=== PATIENT | female | born 1945 | race Caucasian/White ===

== ENCOUNTER → 2017-03-02 | Outpatient (CLI) | payer MEDICARE ==
--- NOTE | 2017-03-02 15:37 | US ---
EXAMINATION TYPE: US thyroid st tissue head/neck DATE OF EXAM: 03/02/2017 3:16 PM COMPARISON: NONE CLINICAL HISTORY: 71-year-old female E04.9 THYROID GOITER. Patient states she is on thyroid meds for 2 years. TECHNIQUE: Multiple sonographic images of the thyroid gland are obtained. FINDINGS: Right Lobe: 3.9 x 1.2 x 1.2 cm Left Lobe: 2.6 x 0.8 x 0.6 cm Isthmus Thickness: 0.2 cm Slight diffuse glandular heterogeneity. No discrete nodule on either side. Bilateral neck scanned, no evidence of lymphadenopathy. IMPRESSION: Small and slightly heterogeneous thyroid gland suggestive of chronic hypothyroidism. No discrete nodu le.
== END | disposition home or self-care (01) ==
LOC: RADUSWWP 14:55
PROVIDERS: ATTEND Family Medicine
DX: E04.9 Nontoxic goiter, unspecified (principal)
CPT/HCPCS: 76536

== ENCOUNTER 2017-05-11 12:10 | Day surgery (SDC) | payer MEDICARE ==
[2017-05-09 14:43] VITALS: BMI 30.4
[~2017-05-11 12:10] MED LIST: DEXAMETHASONE SOD PHOSPHATE 10 MG/ML 1 ML VIAL IV ONE; HEPARIN SODIUM,PORCINE 5,000 UNIT/ML 1 ML VIAL SQ ONE; LACTATED RINGERS 1,000 ML IV SCH; MIDAZOLAM 2 MG/2 ML VIAL IV PRN; ONDANSETRON 4 MG/2 ML VIAL IVP ONE; ceFAZolin 2 GM in SODIUM CHLORIDE 0.9% 100 ML IVPB ONE
[2017-05-11] MEDS ORDERED: LACTATED RINGERS 1,000 ML IV ONE ×3 (12:49→17:30)
[2017-05-11] MEDS ORDERED: LIDOCAINE 1% 20 ML VIAL (10MG/ML) FOR IV START INTRADERMA ONE (12:50)
--- NOTE | 2017-05-11 13:49 | P.GSHP ---
History of Present Illness H&P Date: 05/11/17 Chief Complaint: Incarcerated umbilical hernia This is a 71-year-old female who a safer laparoscopic repair of incarcerated umbilical hernia. Patient's had pain and a mass in umbilicus for several months. - Constitutional Constitutional: Reports as per HPI Past Medical History Past Medical History: Thyroid Disorder Additional Past Medical History / Comment(s): UMBILICAL HERNIA History of Any Multi-Drug Resistant Organisms: None Reported Past Surgical History: Appendectomy Additional Past Surgical History / Comment(s): COLONOSCOPY. BILAT CATARACTS REMOVED Past Anesthesia/Blood Transfusion Reactions: No Reported Reaction Smoking Status: Never smoker - Past Family History Mother Family Medical History: Cancer Medications and Allergies Home Medications Medication Instructions Recorded Confirmed Type Thyroid,Pork [Nature-Throid] 97.5 mg PO DAILY 05/09/17 05/11/17 History Allergies Allergy/AdvReac Type Severity Reaction Status Date / Time No Known Allergies Allergy Verified 05/09/17 14:36 Surgical - Exam Vital Signs Temp Pulse Resp BP Pulse Ox 98.0 F 56 L 18 132/80 97 05/11/17 12:48 05/11/17 12:48 05/11/17 12:48 05/11/17 12:48 05/11/17 12:48 - General well developed, no distress - Eyes PERRL - ENT normal pinna - Neck no masses - Respiratory normal expansion - Cardiovascular Rhythm: regular - Abdomen Abdomen: soft Hernia: umbilical (3 cm incarcerated hernia) Assessment and Plan Plan: Incarcerated we'll hernia. We'll perform laparoscopic repair.
[2017-05-11] MEDS ORDERED: SUCCINYLCHOLINE CHLORIDE 100 MG/5 ML SYR IV ONE (14:41)
[2017-05-11] MEDS ORDERED: MIDAZOLAM 2 MG/2 ML VIAL ONE (14:41)
[2017-05-11] MEDS ORDERED: NEOSTIGMINE 1 MG/ML 10 ML VIAL ONE (14:41)
[2017-05-11] MEDS ORDERED: PROPOFOL 10 MG/ML 20 ML VIAL IV ONE (14:41)
[2017-05-11] MEDS ORDERED: ROCURONIUM BROMIDE 10 MG/ML 10 ML VIAL IV ONE (14:41)
[2017-05-11] MEDS ORDERED: fentaNYL (PF) 50 MCG/ML 2 ML AMP ONE (14:41)
[2017-05-11] MEDS ORDERED: GLYCOPYRROLATE 0.2 MG/ML 2 ML VIAL ONE (14:41)
[2017-05-11] MEDS ORDERED: BUPIVACAIN-EPI 0.5%-1:200,000 30 ML VIAL SQ ONE (15:03)
--- NOTE | 2017-05-11 15:26 | P.OP ---
Date of Procedure: 05/11/17 Preoperative Diagnosis: Umbilical hernia Postoperative Diagnosis: Umbilical incarcerated hernia Procedure(s) Performed: Laparoscopic umbilical hernia repair Implants: Anesthesia: MIRNA Surgeon: Ramón Andre Estimated Blood Loss (ml): 5 Pathology: none sent Condition: stable Disposition: PACU Indications for Procedure: Operative Findings: Description of Procedure: The patient's placed on the operative table in the supine position. She received general anesthesia. Her abdomen was prepped and draped usual sterile fashion. The abdomen was entered with an optical 5 mm trocar in the left upper quadrant. After adequate insufflation the laparoscope was placed back into the abdominal cavity and then the 5 mm trochars placed left lower quadrant. And then a 12 mm trochars placed the left lateral position. The patient's placed in the left side up position. The umbilical hernia was visualized. The incarcerated. Fat was retracted back within the pleural cavity. The fascial defect was closed using. 0 Ethibond suture and a Neri Segura suture passer. Once the hernia was repaired. A ventral light ST mesh was placed. Cavity and secured with the spiral tacker over top of the hernia. At this point the trochars withdrawn. The skin was closed interrupted 3-0 Monocryl suture. Dermabond was applied. Patient top she will well and was sent to recovery in stable condition.
[2017-05-11 15:34] VITALS: TEMP 97.4
[2017-05-11] MEDS: HYDROmorphone 1 MG/ML 1 ML SYRINGE IVP PRN ×2 (15:50→15:55)
[2017-05-11 16:23] VITALS: RESP 16
[2017-05-11 18:51] VITALS: BP 110/60; PULSE 62
== END 2017-05-11 19:09 | disposition home or self-care (01) ==
LOC: OR 12:10
PROVIDERS: ATTEND Surgery
DX: K42.0 Umbilical hernia with obstruction, without gangrene (principal); E07.9 Disorder of thyroid, unspecified; Z79.899 Other long term (current) drug therapy
CPT/HCPCS: 49653; C1781; J2250; J1644; J1100; J2710; J0690; J2405; J3010; J1170; J0330; J2704

== ENCOUNTER → 2017-05-24 | Outpatient (CLI) | payer MEDICARE ==
--- NOTE | 2017-05-24 17:01 | US ---
EXAMINATION TYPE: US gallbladder DATE OF EXAM: 05/24/2017 COMPARISON: US CLINICAL HISTORY: 71-year-old female K80.00 GALLSTONES. Pt states RUQ pain. TECHNIQUE: Multiple sonographic images of the right upper quadrant are obtained. FINDINGS: EXAM MEASUREMENTS: Liver Length: 15.8 cm Gallbladder Wall: 0.3 cm CBD: 0.5 cm Right Kidney: 9.5 x 4.0 x 5.0 cm Pancreas: Difficult to visualize due to overlying bowel gas Liver: Slight increased echogenicity. No focal lesion. Gallbladder: Borderline distended. No abnormal wall thickening, pericholecystic fluid, or shadowing c alculi. Evidence for sonographic Greco's sign: No CBD: wnl Right Kidney: No hydronephrosis IMPRESSION: 1. The gallbladder is borderline distended. This likely relates to fasting state. No ancillary findin gs of acute cholecystitis. 2. Mild fatty infiltration of the liver.
== END | disposition home or self-care (01) ==
LOC: RADUSWWP 16:15
PROVIDERS: ATTEND Surgery
DX: K76.0 Fatty (change of) liver, not elsewhere classified (principal)
CPT/HCPCS: 76705

== ENCOUNTER → 2018-04-10 | Outpatient (CLI) | payer MEDICARE | END | disposition home or self-care (01) | LOC: LABWHC1 10:59 | PROVIDERS: ATTEND Internal Medicine Endocrinology, Diabetes & Metabolism | DX: E03.8 Other specified hypothyroidism (principal) | CPT/HCPCS: 36415; 84443 ==

== ENCOUNTER → 2018-04-17 | Outpatient (CLI) | payer MEDICARE ==
--- NOTE | 2018-04-18 12:32 | US ---
EXAMINATION TYPE: US thyroid st tissue head/neck DATE OF EXAM: 04/17/2018 COMPARISON: NONE CLINICAL HISTORY: E03.8 HYPOTHYROIDISM. not on meds GLAND SIZE: Right Lobe: 4.2 x 1.2 x 0.8 cm Overall Parenchyma: homogenous Left Lobe: 3.3 x 0.8 x 0.7 cm Overall Parenchyma: homogeneous Isthmus Thickness: 0.1 cm NODULES RIGHT: # of nodules measured on right: 0 LEFT: # of nodules measured on left: 0 ISTHMUS: # of nodules measured in the isthmus: 0 Bilateral neck scanned, no evidence of lymphadenopathy. Thyroid lobes are small and homogenous. IMPRESSION: 1. Normal-appearing thyroid.
== END | disposition home or self-care (01) ==
LOC: RADUSWWP 16:19
PROVIDERS: ATTEND Internal Medicine Endocrinology, Diabetes & Metabolism
DX: E03.8 Other specified hypothyroidism (principal)
CPT/HCPCS: 76536

== ENCOUNTER → 2018-04-25 | Outpatient (CLI) | payer MEDICARE ==
[2018-04-25 11:34] LABS: ALT 27 U/L (9-52); AST 17 U/L (14-36); Albumin 4.6 g/dL (3.5-5.0); Alkaline Phosphatase 83 U/L (38-126); Anion Gap 11 mmol/L; Blood Urea Nitrogen 17 mg/dL (7-17); Calcium 9.6 mg/dL (8.4-10.2); Carbon Dioxide 26 mmol/L (22-30); Chloride 105 mmol/L (98-107); Cholesterol 204 mg/dL (<200); Glucose 104 mg/dL (74-99); HDL Cholesterol 57 mg/dL (40-60); LDL Cholesterol,Calculated 131 mg/dL (0-99); Potassium 4.9 mmol/L (3.5-5.1); Sodium 142 mmol/L (137-145); Total Bilirubin 0.4 mg/dL (0.2-1.3); Total Protein 7.5 g/dL (6.3-8.2); Triglycerides 80 mg/dL (<150)
== END | disposition home or self-care (01) ==
LOC: LABWHC1 10:47
PROVIDERS: ATTEND Internal Medicine Endocrinology, Diabetes & Metabolism
DX: E03.8 Other specified hypothyroidism (principal); E78.5 Hyperlipidemia, unspecified
CPT/HCPCS: 36415; 80053; 80061; 84443

== ENCOUNTER → 2018-05-27 | Outpatient (CLI) | payer MEDICARE | END | disposition home or self-care (01) | LOC: LABWHC1 11:33 | PROVIDERS: ATTEND Internal Medicine Endocrinology, Diabetes & Metabolism | DX: E03.8 Other specified hypothyroidism (principal) | CPT/HCPCS: 36415; 84443 ==

== ENCOUNTER → 2018-07-29 | Outpatient (CLI) | payer MEDICARE ==
--- NOTE | 2018-07-29 15:31 | P.HPBAR ---
Bariatric H&P - History & Physicial H&P Date: 07/29/18 History & Physicial: Visit/CC: Patient initial contact: Initial weight: Initial weight in pounds: Height: 5 ft 8 in Initial BMI: Last weight: Current weight: 95.708 kg Current weight in pounds: Current BMI: [place] body weight (based on NIH guidelines): Excess body weight loss: The patient is a 72 year-old F who presents for Bariatric Assessment. Patient presents today for panniculectomy constipation. Patient developed a well- formed umbilicus. She states she's gained approximately 30 pounds over the last 8 years. 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 Patient has had issues with skin hygiene due to her panniculus. She's also had rashes. Past Medical History Past Medical History: Thyroid Disorder Additional Past Medical History / Comment(s): UMBILICAL HERNIA History of Any Multi-Drug Resistant Organisms: None Reported Past Surgical History: Appendectomy Additional Past Surgical History / Comment(s): COLONOSCOPY. BILAT CATARACTS REMOVED Past Anesthesia/Blood Transfusion Reactions: No Reported Reaction Past Psychological History: No Psychological Hx Reported Smoking Status: Never smoker Past Alcohol Use History: None Reported Additional Past Alcohol Use History / Comment(s): RECOVERED ALCOHOLIC Past Drug Use History: None Reported - Past Family History Mother Family Medical History: Cancer Surgical - Exam - General well developed, no distress - Eyes PERRL - ENT normal pinna - Neck no masses - Respiratory normal expansion - Cardiovascular Rhythm: regular - Abdomen well-formed panniculus which hangs over the pubic area. There is evidence of some chronic skin irritation's. Abdomen: soft, non tender Bariatric Assessment & Plan Plan: Panniculus. Patient will be authorize for panniculectomy. She will follow-up prior to surgery once she is authorize. Bariatric Checklist Checklist: Plan: Checklist: EGD: 1. Hiatal hernia: 2. H. Pylori: HgbA1c: Vitamin D: Smoking: Never smoker Primary care physician referral: Psychiatry clearance: Cardiology clearance: Sleep study: Diet journal: VTE risk score: VTE risk level: Rehab needs at discharge:
== END ==
LOC: BARWHC3 13:22
PROVIDERS: ATTEND Surgery
DX: E65 Localized adiposity (principal); K59.00 Constipation, unspecified; M54.9 Dorsalgia, unspecified; R21 Rash and other nonspecific skin eruption
CPT/HCPCS: 99211

== ENCOUNTER → 2019-02-24 | Outpatient (CLI) | payer MEDICARE | END | disposition home or self-care (01) | LOC: LABWHC1 13:38 | PROVIDERS: ATTEND Internal Medicine Endocrinology, Diabetes & Metabolism | DX: E03.8 Other specified hypothyroidism (principal) | CPT/HCPCS: 36415; 84443 ==